=== PATIENT | female | born 1985 | race Caucasian/White ===

== ENCOUNTER 2016-03-17 13:43 | Emergency (ER) | payer OTHER ==
[~2016-03-17] VITALS: Ht 175.3 cm; Wt 105.0 kg
[~2016-03-17 13:43] MED LIST: ALBU8.5H4 IH; APIX5TAB PO; BIRTH CONTROL; BUDE10.22 IH; ESCI10TA PO; HYDR-3702 PO; LRT10T PO; MONT10TA21 PO; NF-VITB12 GT; NORG1TAB15 PO; RIVA15TA2 PO; WARF10TA4 PO
[2016-03-17] MEDS ORDERED: WARF4TAB PO (14:09)
[2016-03-17 14:47] LABS: BASOPHILS % (AUTO) 0 % (0-2); EOSINOPHILS # (AUTO) 0.1 10^3uL; EOSINOPHILS % (AUTO) 3 % (0-4); MEAN CORPUSCULAR HEMOGLOBIN 28.7 PG (26.0-34.0); MEAN CORPUSCULAR HGB CONC 32.8 g/dL (31.0-37.0); MEAN CORPUSCULAR VOLUME 88 FL (80-100); MEAN PLATELET VOLUME 11.1 FL (6.0-9.5); MONOCYTES # (AUTO) 0.4 X10^3; MONOCYTES % (AUTO) 7 % (3-11); NEUTROPHILS # (AUTO) 2.7 X10^3; NEUTROPHILS % (AUTO) 52 % (51-67); PLATELET COUNT 207 10^3uL (150-450); WHITE BLOOD COUNT 5.26 10^3uL (4.0-11.0)
[2016-03-17 15:07] LABS: ALBUMIN 4.7 g/dL (3.4-5.0); ANION GAP 18.1 MEQ/L (3-15); CALCULATED IONIZED CALCIUM 3.7 mg/dL (3.8-4.6); TOTAL PROTEIN 8.4 g/dL (6.4-8.5)
--- NOTE | 2016-03-17 15:10 | Diagnostic Imaging Report ---
EXAMINATION: CT brain pre and post contrast from 03/17/2016. TECHNIQUE: Multiple contiguous axial images were obtained through the brain before and after the administration of intravenous contrast. INDICATION: Altered neurological status, migraines for two days, history of DVT. COMPARISON: No priors available for comparison. FINDINGS: There is no evidence for acute infarct or hemorrhage. There is no mass, mass effect, or midline shift with no hydrocephalus noted. The post contrast images demonstrate no abnormal enhancement. The visualized paranasal sinuses and mastoid air cells demonstrate no evidence for acute disease. IMPRESSION: 1. No acute intracranial process. If symptoms persist, MRI could provide further characterization as clinically warranted. Dictated by: Dictated on workstation # [id number]
--- NOTE | 2016-03-17 16:59 | Diagnostic Imaging Report ---
INDICATION: Left arm swelling and abnormal sensation. TECHNIQUE: Left arm venous Doppler study performed in a routine fashion with color flow Doppler and waveform analysis. FINDINGS: Left internal jugular vein, left subclavian vein, and left axillary vein are patent and compressible. The left brachial and basilic and cephalic veins are patent. Visualized portions of the ulnar and radial veins are patent. IMPRESSION: No evidence of deep vein thrombosis in the major veins of the left upper extremity. Dictated by: Dictated on workstation # [id number]
[2016-03-17] MEDS ORDERED: BIOT1TAB14 PO (19:56)
[2016-03-17 20:00] VITALS: BP 107/66
== END 2016-03-17 16:53 | disposition home or self-care (01) ==
LOC: ED 13:45
DX: G43.809 Other migraine, not intractable, without status migrainosus (principal); H53.8 Other visual disturbances; R20.9 Unspecified disturbances of skin sensation; Z86.718 Personal history of other venous thrombosis and embolism; Z79.01 Long term (current) use of anticoagulants
CPT/HCPCS: 36415; 70470; 80053; 85025; 85610; 85730; 93971; 99285; Q9967; 99283

== ENCOUNTER → 2016-04-28 | Outpatient (CLI) | payer OTHER | LOC: RAD 12:21 | PROVIDERS: ATTEND Internal Medicine Hematology & Oncology | DX: C45.9 Mesothelioma, unspecified (principal); I82.412 Acute embolism and thrombosis of left femoral vein | CPT/HCPCS: 93306; 93880 ==

== ENCOUNTER → 2016-04-29 | Outpatient (CLI) | payer OTHER | LOC: RAD 11:42 | PROVIDERS: ATTEND Internal Medicine Hematology & Oncology | DX: H55.00 Unspecified nystagmus (principal); G43.009 Migraine without aura, not intractable, without status migrainosus | CPT/HCPCS: 70553; A9579 ==